=== PATIENT | female | born 1995 | race Caucasian/White ===

== ENCOUNTER → 2017-04-28 | Outpatient (CLI) | payer BC | LOC: COL.LAB 16:17 | DX: Z01.89 Encounter for other specified special examinations (principal) ==

== ENCOUNTER → 2017-05-01 | Outpatient (CLI) | payer BC | LOC: COL.LAB 15:10 | DX: K51.00 Ulcerative (chronic) pancolitis without complications (principal) ==

== ENCOUNTER 2017-09-14 13:40 | Outpatient (CLI) | payer BC ==
[~2017-09-14] VITALS: Ht 180.3 cm; Wt 59.0 kg
[~2017-09-14 13:40] MED LIST: LIALDA 1.2 GM1.2 GM PO
[2017-09-14] MEDS ORDERED: MILLIPRED5 MG PO (14:06)
[2017-09-14 14:08] LABS: HEMATOCRIT 41.2 % (35.0-45.0); HEMOGLOBIN 13.6 g/dl (12.0-15.0); MEAN CELL VOLUME 89 fl (80.0-95.0); MEAN CORPUSCULAR HEMOGLOBIN 30 pg (26.0-32.0); MEAN CORPUSCULAR HGB CONC 33 g/dl (33.0-37.0); MEAN PLATELET VOLUME 10.7 fl (7.4-10.4); PLATELET COUNT 229 K/mm3 (130-400); RED BLOOD COUNT 4.61 M/mm3 (4.10-5.30); REDCELL DISTRIBUTION WIDTH-CV 13.1 % (11.5-14.5)
[2017-09-14 14:19] LABS: BILIRUBIN,TOTAL 0.3 mg/dL (0.0-1.0); CALCIUM 9.5 mg/dL (8.4-10.2); CREATININE, serum 0.67 mg/dL (0.52-1.25); POTASSIUM 3.6 mmol/L (3.4-5.0); TOTAL PROTEIN 8.1 gm/dL (6.4-8.2)
[2017-09-14 14:59] VITALS: BP 130/78; PULSE 72; TEMP 97.4
[2017-09-14 15:30] VITALS: BP 115/78; PULSE 77; TEMP 98.1
[2017-09-14 16:10] VITALS: BP 112/74; PULSE 63
[2017-09-14 17:01] VITALS: BP 107/75; PULSE 73; TEMP 98
== END 2017-09-14 17:01 | disposition home or self-care (01) ==
LOC: EUO 13:40
PROVIDERS: Internal Medicine Gastroenterology
DX: K50.90 Crohn's disease, unspecified, without complications (principal); Z79.899 Other long term (current) drug therapy
CPT/HCPCS: J1200; J7050; Q5102-ZB

== ENCOUNTER → 2017-10-30 | Outpatient (CLI) | payer BC ==
[~2017-10-30] MED LIST changes: +MILLIPRED5 MG PO
== END ==
LOC: COL.LAB 10:33
DX: K51.00 Ulcerative (chronic) pancolitis without complications (principal)

== ENCOUNTER 2017-11-09 12:33 | Outpatient (CLI) | payer BC ==
[~2017-11-09] VITALS: Ht 180.3 cm; Wt 59.0 kg
[2017-11-09 12:57] LABS: HEMATOCRIT 36.8 % (35.0-45.0); HEMOGLOBIN 12.8 g/dl (12.0-15.0); MEAN CELL VOLUME 86 fl (80.0-95.0); MEAN CORPUSCULAR HEMOGLOBIN 30 pg (26.0-32.0); MEAN CORPUSCULAR HGB CONC 35 g/dl (33.0-37.0); MEAN PLATELET VOLUME 10.9 fl (7.4-10.4); PLATELET COUNT 238 K/mm3 (130-400); RED BLOOD COUNT 4.27 M/mm3 (4.10-5.30); REDCELL DISTRIBUTION WIDTH-CV 12.2 % (11.5-14.5)
[2017-11-09 13:09] LABS: ALBUMIN 4.2 gm/dL (3.5-5.0); BILIRUBIN,TOTAL 0.6 mg/dL (0.0-1.0); CREATININE, serum 0.73 mg/dL (0.52-1.25); TOTAL PROTEIN 7.7 gm/dL (6.4-8.2)
[2017-11-09 13:53] VITALS: BP 112/83; PULSE 77; TEMP 98.4
[2017-11-09 15:00] VITALS: BP 105/65; PULSE 68; TEMP 99.1
[2017-11-09 15:30] VITALS: BP 104/70; PULSE 70; TEMP 98.9
[2017-11-09 16:00] VITALS: BP 110/66; PULSE 73; TEMP 98.7
[2017-11-09 16:38] VITALS: BP 108/70; PULSE 70; TEMP 98.7
== END 2017-11-09 16:39 | disposition home or self-care (01) ==
LOC: EUO 12:33
PROVIDERS: Internal Medicine Gastroenterology
DX: K50.90 Crohn's disease, unspecified, without complications (principal); Z98.890 Other specified postprocedural states
CPT/HCPCS: J1200; J2930; J7050; Q5103

== ENCOUNTER 2017-12-28 12:27 | Outpatient (CLI) | payer BC ==
[~2017-12-28] VITALS: Ht 180.3 cm; Wt 57.0 kg
[2017-12-28 13:01] LABS: HEMATOCRIT 39.4 % (37.0-47.0); HEMOGLOBIN 13.5 g/dl (12.5-16.0); MEAN CELL VOLUME 88 fl (80.0-100.0); MEAN CORPUSCULAR HEMOGLOBIN 30 pg (27.0-31.0); MEAN CORPUSCULAR HGB CONC 34 g/dl (33.0-37.0); MEAN PLATELET VOLUME 11.1 fl (7.4-10.4); PLATELET COUNT 178 K/mm3 (130-400); RED BLOOD COUNT 4.49 M/mm3 (4.10-5.30); REDCELL DISTRIBUTION WIDTH-CV 12.3 % (11.5-14.5)
[2017-12-28 13:13] LABS: ALBUMIN 4.5 gm/dL (3.5-5.0); BILIRUBIN,TOTAL 0.6 mg/dL (0.0-1.0); CALCIUM 9.4 mg/dL (8.4-10.2); CREATININE, serum 0.67 mg/dL (0.52-1.25); TOTAL PROTEIN 8.5 gm/dL (6.4-8.2)
[2017-12-28] MEDS ORDERED: LEXAPRO 10MG10 MG PO (13:19)
[2017-12-28 13:40] VITALS: BP 111/80; PULSE 69; TEMP 98.1
[2017-12-28 14:10] VITALS: BP 111/66; PULSE 66; TEMP 98
[2017-12-28 14:40] VITALS: BP 113/82; PULSE 63; TEMP 98.4
[2017-12-28 15:10] VITALS: BP 112/72; PULSE 65; TEMP 98.7
[2017-12-28 15:40] VITALS: BP 109/77; PULSE 66; TEMP 98.7
== END 2017-12-28 16:01 | disposition home or self-care (01) ==
LOC: EUO 12:27
PROVIDERS: Internal Medicine Gastroenterology
DX: K50.90 Crohn's disease, unspecified, without complications (principal)
CPT/HCPCS: J1200; J2930; J7050; Q5103

== ENCOUNTER 2018-02-22 12:45 | Outpatient (CLI) | payer BC ==
[~2018-02-22] VITALS: Ht 180.3 cm; Wt 58.0 kg
[~2018-02-22 12:45] MED LIST changes: +LEXAPRO 10MG10 MG PO
[2018-02-22 13:11] LABS: HEMATOCRIT 39.6 % (37.0-47.0); HEMOGLOBIN 13.5 g/dl (12.5-16.0); MEAN CELL VOLUME 88 fl (80.0-100.0); MEAN CORPUSCULAR HEMOGLOBIN 30 pg (27.0-31.0); MEAN CORPUSCULAR HGB CONC 34 g/dl (33.0-37.0); MEAN PLATELET VOLUME 10.6 fl (7.4-10.4); PLATELET COUNT 203 K/mm3 (130-400); REDCELL DISTRIBUTION WIDTH-CV 13.8 % (11.5-14.5)
[2018-02-22 13:20] LABS: ALBUMIN 4.2 gm/dL (3.5-5.0); BILIRUBIN,TOTAL 0.5 mg/dL (0.0-1.0); CALCIUM 8.2 mg/dL (8.4-10.2); CREATININE, serum 0.64 mg/dL (0.52-1.25); TOTAL PROTEIN 7.4 gm/dL (6.4-8.2)
[2018-02-22 14:33] VITALS: BP 120/78; PULSE 57
[2018-02-22 15:19] VITALS: BP 123/66; PULSE 57; TEMP 98.4
[2018-02-22 15:50] VITALS: BP 112/68; PULSE 57
[2018-02-22 16:20] VITALS: BP 113/70; PULSE 53
[2018-02-22 16:50] VITALS: BP 95/80; PULSE 55
[2018-02-22 17:15] VITALS: BP 116/79; PULSE 56
== END 2018-02-22 17:57 | disposition home or self-care (01) ==
LOC: EUO 12:45
PROVIDERS: Internal Medicine Gastroenterology
DX: K50.90 Crohn's disease, unspecified, without complications (principal); Z79.899 Other long term (current) drug therapy
CPT/HCPCS: J1200; J2920; J7050; Q5103

== ENCOUNTER → 2018-03-29 | Outpatient (CLI) | payer BC | LOC: COL.LAB 14:57 | DX: K51.00 Ulcerative (chronic) pancolitis without complications (principal) ==

== ENCOUNTER 2018-04-19 14:37 | Outpatient (CLI) | payer BC ==
[~2018-04-19] VITALS: Ht 180.3 cm; Wt 61.5 kg
[2018-04-19 15:00] LABS: HEMATOCRIT 39.4 % (37.0-47.0); HEMOGLOBIN 13.7 g/dl (12.5-16.0); MEAN CELL VOLUME 88 fl (80.0-100.0); MEAN CORPUSCULAR HEMOGLOBIN 31 pg (27.0-31.0); MEAN CORPUSCULAR HGB CONC 35 g/dl (33.0-37.0); MEAN PLATELET VOLUME 10.6 fl (7.4-10.4); PLATELET COUNT 235 K/mm3 (130-400); RED BLOOD COUNT 4.49 M/mm3 (4.10-5.30); REDCELL DISTRIBUTION WIDTH-CV 12.3 % (11.5-14.5)
[2018-04-19 15:08] LABS: ALBUMIN 4.3 gm/dL (3.5-5.0); BILIRUBIN,TOTAL 0.4 mg/dL (0.0-1.0); CALCIUM 8.9 mg/dL (8.4-10.2); CREATININE, serum 0.67 mg/dL (0.52-1.25); POTASSIUM 4.2 mmol/L (3.4-5.0); TOTAL PROTEIN 7.7 gm/dL (6.4-8.2)
[2018-04-19 15:45] VITALS: BP 117/82; PULSE 69; TEMP 98.2
[2018-04-19 16:15] VITALS: BP 105/67; PULSE 69; TEMP 98.3
[2018-04-19 16:45] VITALS: BP 103/67; PULSE 73; TEMP 98.4
[2018-04-19 17:15] VITALS: BP 112/57; PULSE 68; TEMP 98.4
[2018-04-19 17:45] VITALS: BP 106/70; PULSE 70; TEMP 98.4
== END 2018-04-19 18:00 | disposition home or self-care (01) ==
LOC: EUO 14:37
PROVIDERS: Internal Medicine Gastroenterology
DX: K50.90 Crohn's disease, unspecified, without complications (principal)
CPT/HCPCS: J1200; J2930; J7050; Q5103

== ENCOUNTER 2018-05-04 10:20 | Day surgery (SDC) | payer BC ==
[~2018-05-04] VITALS: Ht 180.3 cm; Wt 59.2 kg
[2018-05-04] MEDS ORDERED: REMIFENTANIL 1 MG IV (10:37)
[2018-05-04 11:18] VITALS: BP 111/82; PULSE 95; TEMP 98
[2018-05-04 14:10] VITALS: BP 110/78; PULSE 68; TEMP 97.7
[2018-05-04 14:15] VITALS: BP 106/78; PULSE 68
== END 2018-05-04 14:52 | disposition home or self-care (01) ==
LOC: SDCO 10:20
DX: K51.011 Ulcerative (chronic) pancolitis with rectal bleeding (principal); K92.1 Melena; D50.0 Iron deficiency anemia secondary to blood loss (chronic); F32.9 Major depressive disorder, single episode, unspecified
CPT/HCPCS: J2704

== ENCOUNTER 2018-06-14 13:27 | Outpatient (CLI) | payer BC ==
[~2018-06-14] VITALS: Ht 180.3 cm; Wt 58.8 kg
[~2018-06-14 13:27] MED LIST changes: +REMIFENTANIL 1 MG IV
[2018-06-14 13:49] LABS: HEMOGLOBIN 14.1 g/dl (12.5-16.0); MEAN CELL VOLUME 89 fl (80.0-100.0); MEAN CORPUSCULAR HEMOGLOBIN 31 pg (27.0-31.0); MEAN CORPUSCULAR HGB CONC 34 g/dl (33.0-37.0); MEAN PLATELET VOLUME 11.3 fl (7.4-10.4); PLATELET COUNT 206 K/mm3 (130-400); REDCELL DISTRIBUTION WIDTH-CV 11.9 % (11.5-14.5)
[2018-06-14 13:59] LABS: ALBUMIN 4.6 gm/dL (3.5-5.0); BILIRUBIN,TOTAL 0.6 mg/dL (0.0-1.0); CALCIUM 9.6 mg/dL (8.4-10.2); CREATININE, serum 0.6 mg/dL (0.52-1.25); POTASSIUM 4.1 mmol/L (3.4-5.0); TOTAL PROTEIN 7.9 gm/dL (6.4-8.2)
[2018-06-14 14:50] VITALS: BP 112/71; PULSE 66; TEMP 97.6
[2018-06-14] MEDS ORDERED: PRILOSEC 20MG20 MG PO (14:57)
[2018-06-14 15:30] VITALS: BP 105/64; PULSE 61; TEMP 98.3
[2018-06-14 16:05] VITALS: BP 105/64; PULSE 52; TEMP 98.5
[2018-06-14 16:30] VITALS: BP 106/74; PULSE 59; TEMP 98.3
[2018-06-14 17:00] VITALS: BP 104/72; PULSE 59; TEMP 98.6
== END 2018-06-14 17:38 | disposition home or self-care (01) ==
LOC: EUO 13:27
PROVIDERS: Internal Medicine Gastroenterology
DX: K50.90 Crohn's disease, unspecified, without complications (principal); Z79.899 Other long term (current) drug therapy
CPT/HCPCS: J1200; J2930; J7050; Q5103

== ENCOUNTER 2018-08-09 13:37 | Outpatient (CLI) | payer BC ==
[~2018-08-09] VITALS: Ht 180 cm; Wt 58.4 kg
[~2018-08-09 13:37] MED LIST changes: +PRILOSEC 20MG20 MG PO
[2018-08-09 14:07] LABS: HEMATOCRIT 38.5 % (37.0-47.0); MEAN CELL VOLUME 89 fl (80.0-100.0); MEAN CORPUSCULAR HEMOGLOBIN 30 pg (27.0-31.0); MEAN CORPUSCULAR HGB CONC 34 g/dl (33.0-37.0); MEAN PLATELET VOLUME 11.2 fl (7.4-10.4); PLATELET COUNT 182 K/mm3 (130-400); RED BLOOD COUNT 4.32 M/mm3 (4.10-5.30); REDCELL DISTRIBUTION WIDTH-CV 12.7 % (11.5-14.5)
[2018-08-09 14:28] LABS: ALBUMIN 4.3 gm/dL (3.5-5.0); BILIRUBIN,TOTAL 0.5 mg/dL (0.0-1.0); CALCIUM 9.2 mg/dL (8.4-10.2); CREATININE, serum 0.69 mg/dL (0.52-1.25); POTASSIUM 3.8 mmol/L (3.4-5.0); TOTAL PROTEIN 7.4 gm/dL (6.4-8.2)
[2018-08-09 15:10] VITALS: BP 110/72; PULSE 84; TEMP 98
[2018-08-09 15:36] VITALS: BP 96/70; PULSE 70; TEMP 98.5
[2018-08-09 16:10] VITALS: BP 102/74; PULSE 68; TEMP 98.4
[2018-08-09 17:10] VITALS: BP 114/76; PULSE 71; TEMP 97.9
== END 2018-08-09 17:10 | disposition home or self-care (01) ==
LOC: EUO 13:37
PROVIDERS: Internal Medicine Gastroenterology
DX: K50.90 Crohn's disease, unspecified, without complications (principal); Z79.899 Other long term (current) drug therapy
CPT/HCPCS: J1200; J2930; J7050; Q5103

== ENCOUNTER → 2019-03-20 | Outpatient (CLI) | payer BC ==
[2019-03-20 11:33] LABS: BASO % 0.4 % (0.0-2.0); EOS % 0.4 % (0-4.0); GRAN # 4.2 (1.4-6.5); GRAN % 59.2 % (42.2-75.2); HEMOGLOBIN 13.6 g/dl (12.5-16.0); LYMPH # 2.2 (1.2-3.4); LYMPH % 31.4 % (20.0-51.0); MEAN CELL VOLUME 88 fl (80.0-100.0); MEAN CORPUSCULAR HEMOGLOBIN 31 pg (27.0-31.0); MEAN CORPUSCULAR HGB CONC 35 g/dl (33.0-37.0); MEAN PLATELET VOLUME 10.5 fl (7.4-10.4); MONO # 0.6 (0.1-0.6); MONO % 8.3 % (1.7-9.3); PLATELET COUNT 259 K/mm3 (130-400); RED BLOOD COUNT 4.44 M/mm3 (4.10-5.30); REDCELL DISTRIBUTION WIDTH-CV 11.8 % (11.5-14.5)
[2019-03-20 11:44] LABS: ALANINE AMINOTRANSFERASE 11 U/L (9-52); ALBUMIN 4.6 gm/dL (3.5-5.0); ALKALINE PHOSPHATASE 48 U/L (50-136); ANION GAP 9 mmol/L (7-16); AST,SGOT 15 U/L (15-37); BILIRUBIN,TOTAL 0.4 mg/dL (0.0-1.0); BLOOD UREA NITROGEN 16 mg/dL (7-17); C-REACTIVE PROTEIN < 0.5 mg/dL (0.0-0.9); CALCIUM 9.4 mg/dL (8.4-10.2); CARBON DIOXIDE 29 mmol/L (22-30); CHLORIDE 101 mmol/L (98-107); CREATININE, serum 0.82 (0.52-1.25); GLUCOSE 92 mg/dL (74-106); IRON,SERUM 73 ug/dL (35-150); POTASSIUM 4.1 mmol/L (3.4-5.0); SODIUM 139 mmol/L (137-145); TOTAL PROTEIN 7.5 gm/dL (6.4-8.2)
[2019-03-20 11:50] LABS: TOTAL IRON BINDING CAPACITY 346 ug/dL (265-497)
[2019-03-20 11:54] LABS: ERYTHROCYTE SEDIMENTATION RATE 6 mm/hr (0-20)
[2019-03-20 12:16] LABS: FERRITIN 15 ng/mL (6-137)
== END ==
LOC: COL.LAB 03-19 15:14
DX: K92.1 Melena (principal); K51.00 Ulcerative (chronic) pancolitis without complications

== ENCOUNTER 2019-03-22 13:38 | Day surgery (SDC) | payer BC ==
[~2019-03-22] VITALS: Ht 180.3 cm; Wt 63.4 kg
[~2019-03-22 13:38] MED LIST changes: -LEXAPRO 10MG10 MG PO; +LEXAPRO20 MG PO
[2019-03-22] MEDS ORDERED: XELJANZ10 MG PO (13:59)
[2019-03-22 14:00] VITALS: BP 114/82; PULSE 91; TEMP 97
[2019-03-22 15:25] VITALS: BP 111/72; PULSE 70; TEMP 97.4
--- NOTE | 2019-03-22 15:25 | NUR ---
Patient returned back to [facility]. Alert but drowsy. Ambulated to chair without difficulty. Placed on monitors, vital sounds stable. Boyfriend and mother at bedside. Requesting sprite and crackers. Call sanchez within reach, will continue to monitor.
[2019-03-22 15:40] VITALS: BP 116/80; PULSE 66
--- NOTE | 2019-03-22 15:40 | NUR ---
Patient tolerating food and drink without difficulty. Vital signs stable. Dr. Guerra in room to discuss results with patient and family. Will continue to monitor.
[2019-03-22 15:55] VITALS: BP 111/78; PULSE 62
--- NOTE | 2019-03-22 15:55 | NUR ---
Patient states she is feeling good at this time. Vital signs stable. Will continue to monitor.
--- NOTE | 2019-03-22 16:36 | NUR ---
Discharge instructions reviewed with mother and patient. Verbalized understanding. Patient ambulated to lobby, to be driven home by mother.
== END 2019-03-22 16:36 | disposition home or self-care (01) ==
LOC: SDCO 13:38
DX: K51.011 Ulcerative (chronic) pancolitis with rectal bleeding (principal); K92.1 Melena; D50.0 Iron deficiency anemia secondary to blood loss (chronic); K59.00 Constipation, unspecified
CPT/HCPCS: J2250; J2405; J3010; J7030

== ENCOUNTER 2019-03-24 12:33 | Inpatient (IN) | payer BC ==
[~2019-03-24] VITALS: Ht 180.3 cm; Wt 64.1 kg
[~2019-03-24 12:33] MED LIST changes: +XELJANZ10 MG PO
[2019-03-24 12:49] VITALS: BP 125/80; PULSE 82; TEMP 98.5
[2019-03-24] MEDS ORDERED: PREDNISONE 5MG5 MG PO (13:30)
[2019-03-24 13:35] LABS: BASO % 0.1 % (0.0-2.0); EOS % 0.1 % (0-4.0); GRAN # 6.3 (1.4-6.5); GRAN % 84.9 % (42.2-75.2); HEMATOCRIT 39.9 % (37.0-47.0); HEMOGLOBIN 13.7 g/dl (12.5-16.0); LYMPH # 0.8 (1.2-3.4); LYMPH % 10.2 % (20.0-51.0); MEAN CELL VOLUME 88 fl (80.0-100.0); MEAN CORPUSCULAR HEMOGLOBIN 30 pg (27.0-31.0); MEAN CORPUSCULAR HGB CONC 34 g/dl (33.0-37.0); MEAN PLATELET VOLUME 10.4 fl (7.4-10.4); MONO # 0.3 (0.1-0.6); MONO % 4.4 % (1.7-9.3); PLATELET COUNT 258 K/mm3 (130-400); RED BLOOD COUNT 4.56 M/mm3 (4.10-5.30); REDCELL DISTRIBUTION WIDTH-CV 12.1 % (11.5-14.5)
[2019-03-24 14:03] LABS: ALANINE AMINOTRANSFERASE < 6 U/L (9-52); ALBUMIN 4.8 gm/dL (3.5-5.0); ALKALINE PHOSPHATASE 66 U/L (50-136); ANION GAP 8 mmol/L (7-16); AST,SGOT 29 U/L (15-37); BILIRUBIN,TOTAL 0.4 mg/dL (0.0-1.0); BLOOD UREA NITROGEN 11 mg/dL (7-17); CALCIUM 9.5 mg/dL (8.4-10.2); CARBON DIOXIDE 27 mmol/L (22-30); CHLORIDE 103 mmol/L (98-107); CREATININE, serum 0.69 (0.52-1.25); GLUCOSE 96 mg/dL (74-106); LIPASE 31 U/L (23-300); POTASSIUM 4.1 mmol/L (3.4-5.0); SODIUM 138 mmol/L (137-145); TOTAL PROTEIN 7.9 gm/dL (6.4-8.2)
[2019-03-24 14:05] LABS: C-REACTIVE PROTEIN < 0.5 mg/dL (0.0-0.9)
[2019-03-24 15:05] LABS: COLLECTION METHOD CLEAN CATCH
[2019-03-24 15:15] LABS: PH 9 (5-8); SQUAMOUS EPITHELIAL 0-2 /hpf; URINE APPEARANCE Clear; URINE BACTERIA None Seen /hpf; URINE BILIRUBIN Negative (NEGATIVE); URINE BLOOD Negative (NEGATIVE); URINE COLOR Straw; URINE GLUCOSE Negative (NEGATIVE); URINE KETONE Negative (NEGATIVE); URINE LEUKOCYTE ESTERASE Negative (NEGATIVE); URINE NITRATE Negative (NEGATIVE); URINE PROTEIN(semi-quant) Negative (NEGATIVE); URINE RBC 0-2 /hpf; URINE UROBILINOGEN Negative (NEGATIVE)
[2019-03-24 16:05] VITALS: BP 113/68; PULSE 63; TEMP 98.4
--- NOTE | 2019-03-24 18:00 | NUR ---
Patient has been doing well since admission. All admission assessments completed. Patient's pain is ok at this time. Morphine given once for pain. Explained how often she can have it. She stated her pain is generally ok until she has a bowel movement. Patients family has been at bedside. She is tolerating clear liquids well. No complaints of nausea. No other changes at this time. Call light within reach.
[2019-03-24 19:52] VITALS: BP 115/74; PULSE 64; TEMP 98.9
[2019-03-25] VITALS (7 sets, daily range): BP systolic 107–118; BP diastolic 56–76; PULSE 55–84; TEMP 97.6–98.4
--- NOTE | 2019-03-25 05:09 | NUR ---
RESTING QUIETLY NOW. NO REPORTS OF BLOODY STOOLS. MORPHINE FOR ABDOMINAL DISCOMFORT.
[2019-03-25 06:39] LABS: BASO % 0.1 % (0.0-2.0); EOS % 0.1 % (0-4.0); GRAN # 4.7 (1.4-6.5); GRAN % 64.4 % (42.2-75.2); HEMOGLOBIN 11.9 g/dl (12.5-16.0); LYMPH # 1.7 (1.2-3.4); LYMPH % 23.2 % (20.0-51.0); MEAN CELL VOLUME 89 fl (80.0-100.0); MEAN CORPUSCULAR HEMOGLOBIN 30 pg (27.0-31.0); MEAN CORPUSCULAR HGB CONC 34 g/dl (33.0-37.0); MONO # 0.9 (0.1-0.6); MONO % 12.1 % (1.7-9.3); PLATELET COUNT 222 K/mm3 (130-400); RED BLOOD COUNT 3.92 M/mm3 (4.10-5.30); REDCELL DISTRIBUTION WIDTH-CV 12.4 % (11.5-14.5)
[2019-03-25 06:41] LABS: HEMATOCRIT 34.9 % (37.0-47.0)
[2019-03-25 06:48] LABS: CREATININE, serum 0.64 (0.52-1.25); POTASSIUM 3.7 mmol/L (3.4-5.0)
--- NOTE | 2019-03-25 09:30 | NUR ---
Patient alert and oriented, answers questions appropriately. See assessment. Abdomen soft, non tender, non distended. Bowel sounds hyperactive x4 quads. +Flatus. No bowel movement since last night. C/o mild pain to abdomen. No other c/o at this time.
--- NOTE | 2019-03-25 21:27 | NUR ---
Pt. sitting up in bed with family at bedside. Pt. is A&OX3, assessment complete. IV to rt. hand patent, IV fluids infusing per orders. Pt. reports pain at a 5 on pain scale, gave paim meds per orders. Pt. denies further needs, call light within reach.
[2019-03-26 04:00] VITALS: BP 114/68; PULSE 56; TEMP 98.3
--- NOTE | 2019-03-26 05:22 | NUR ---
Pt. slept well through the night. Pt. remains A&OX3. Pt. not disturbed at this time. Respirations equal and unlabored.
[2019-03-26 06:45] LABS: BASO % 0.2 % (0.0-2.0); GRAN % 76.3 % (42.2-75.2); HEMOGLOBIN 11.7 g/dl (12.5-16.0); LYMPH # 0.9 (1.2-3.4); LYMPH % 14.2 % (20.0-51.0); MEAN CELL VOLUME 89 fl (80.0-100.0); MEAN CORPUSCULAR HEMOGLOBIN 30 pg (27.0-31.0); MEAN CORPUSCULAR HGB CONC 34 g/dl (33.0-37.0); MEAN PLATELET VOLUME 10.8 fl (7.4-10.4); MONO # 0.6 (0.1-0.6); MONO % 8.8 % (1.7-9.3); PLATELET COUNT 226 K/mm3 (130-400); RED BLOOD COUNT 3.88 M/mm3 (4.10-5.30); REDCELL DISTRIBUTION WIDTH-CV 12.4 % (11.5-14.5)
[2019-03-26 06:48] LABS: HEMATOCRIT 34.5 % (37.0-47.0)
[2019-03-26 07:00] LABS: CALCIUM 8.2 mg/dL (8.4-10.2); CREATININE, serum 0.49 (0.52-1.25); POTASSIUM 3.8 mmol/L (3.4-5.0)
[2019-03-26 07:35] VITALS: BP 112/66; PULSE 55; TEMP 98.5
--- NOTE | 2019-03-26 09:19 | NUR ---
DUSTY met with patient and mother to discuss discharge planning. Patient is a [employer] student and lives at home. Patient's PCP is Dr Ramon in [place] and she obtains prescriptions from [facility]. Patient is independent with all ADLs. DUSTY contacted [facility] [employer] to inform them of patient's hospitalization. DUSTY does not anticipate any discharge needs.
[2019-03-26 12:15] VITALS: BP 104/77; PULSE 80; TEMP 98.3
[2019-03-26 16:12] VITALS: BP 114/70; PULSE 59; TEMP 98.2
--- NOTE | 2019-03-26 16:14 | NUR ---
Patient requesting medication for pain. Explains that she was jsut up to the restroom, had third bloody stool for today, and now is having abd pain, 6/10, when lying still it is a 3/10. Explained that we can give her acetaminophen 650mg. Patient agrees. Medication administered at this time. Patient and mother have concerns regarding how much longer she will be in hospital and when she can go home. JESUS Reeder, contacts provider to discuss concerns.
[2019-03-26] MEDS ORDERED: VITAMIN D 1001000 IU PO (16:22)
[2019-03-26] MEDS ORDERED: NORCO 325 MG-51 TAB PO (16:23)
--- NOTE | 2019-03-26 17:06 | NUR ---
1700 Patient assisted out via wheelchair. All belongings returned to patient. Mother will be driving patient home. All discharge instructions reviewed and signed. Patient verbalizes understanding and denies further questions or concerns.
== END 2019-03-26 17:00 | disposition home or self-care (01) | DRG 387 ==
LOC: SURG 12:33 → JCC 03-26 06:19 → SURG 03-26 06:25
PROVIDERS: Nurse Practitioner Family; ADMIT Student in an Organized Health Care Education/Training Program
DX: K51.011 Ulcerative (chronic) pancolitis with rectal bleeding (principal); F32.9 Major depressive disorder, single episode, unspecified; Z79.52 Long term (current) use of systemic steroids
CPT/HCPCS: 99232-AI; J1650; J2270; J2920; J7030; J7512

== ENCOUNTER → 2019-04-10 | Outpatient (CLI) | payer BC ==
[~2019-04-10] MED LIST changes: +NORCO 325 MG-51 TAB PO; +PREDNISONE 5MG5 MG PO; +VITAMIN D 1001000 IU PO; +VITAMIN D31000 I1 PO
[2019-04-10 11:47] LABS: BASO % 0.1 % (0.0-2.0); EOS # 0.1 (0.0-0.7); EOS % 0.6 % (0-4.0); GRAN # 6.4 (1.4-6.5); GRAN % 81.6 % (42.2-75.2); HEMATOCRIT 39.5 % (37.0-47.0); HEMOGLOBIN 12.8 g/dl (12.5-16.0); LYMPH # 0.9 (1.2-3.4); LYMPH % 11.4 % (20.0-51.0); MEAN CELL VOLUME 92 fl (80.0-100.0); MEAN CORPUSCULAR HEMOGLOBIN 30 pg (27.0-31.0); MEAN CORPUSCULAR HGB CONC 32 g/dl (33.0-37.0); MEAN PLATELET VOLUME 9.8 fl (7.4-10.4); MONO # 0.5 (0.1-0.6); MONO % 5.7 % (1.7-9.3); PLATELET COUNT 217 K/mm3 (130-400); RED BLOOD COUNT 4.31 M/mm3 (4.10-5.30); REDCELL DISTRIBUTION WIDTH-CV 12.7 % (11.5-14.5)
== END ==
LOC: COL.LAB 11:10
DX: K92.1 Melena (principal); R10.9 Unspecified abdominal pain; R19.7 Diarrhea, unspecified

== ENCOUNTER 2019-05-14 15:00 | Outpatient (RCR) | payer BC ==
[2019-04-02] VITALS (7 sets, daily range): BP systolic 114–123; BP diastolic 66–82; PULSE 63–80; TEMP 98.3–99
[2019-04-02 15:57] LABS: HEMATOCRIT 40.5 % (37.0-47.0); HEMOGLOBIN 13.6 g/dl (12.5-16.0); MEAN CELL VOLUME 90 fl (80.0-100.0); MEAN CORPUSCULAR HEMOGLOBIN 30 pg (27.0-31.0); MEAN CORPUSCULAR HGB CONC 34 g/dl (33.0-37.0); MEAN PLATELET VOLUME 10.5 fl (7.4-10.4); PLATELET COUNT 260 K/mm3 (130-400); RED BLOOD COUNT 4.51 M/mm3 (4.10-5.30); REDCELL DISTRIBUTION WIDTH-CV 12.6 % (11.5-14.5)
[2019-04-02 16:07] LABS: ALBUMIN 4.6 gm/dL (3.5-5.0); BILIRUBIN,TOTAL 0.4 mg/dL (0.0-1.0); CREATININE, serum 0.67 (0.52-1.25); TOTAL PROTEIN 7.6 gm/dL (6.4-8.2)
[2019-04-16 15:40] LABS: HEMATOCRIT 40.6 % (37.0-47.0); HEMOGLOBIN 13.5 g/dl (12.5-16.0); MEAN CELL VOLUME 90 fl (80.0-100.0); MEAN CORPUSCULAR HEMOGLOBIN 30 pg (27.0-31.0); MEAN CORPUSCULAR HGB CONC 33 g/dl (33.0-37.0); MEAN PLATELET VOLUME 9.8 fl (7.4-10.4); PLATELET COUNT 257 K/mm3 (130-400); REDCELL DISTRIBUTION WIDTH-CV 12.7 % (11.5-14.5)
[2019-04-16 15:54] LABS: ALBUMIN 4.2 gm/dL (3.5-5.0); BILIRUBIN,TOTAL 0.2 mg/dL (0.0-1.0); CALCIUM 9.1 mg/dL (8.4-10.2); CREATININE, serum 0.63 (0.52-1.25); POTASSIUM 3.9 mmol/L (3.4-5.0); TOTAL PROTEIN 7.3 gm/dL (6.4-8.2)
[2019-04-16 16:51] VITALS: BP 117/82; PULSE 72; TEMP 98.4
[2019-04-16 17:25] VITALS: BP 118/73; PULSE 87; TEMP 98.4
[~2019-05-14] VITALS: Ht 180.3 cm; Wt 66.6 kg
[2019-05-14 15:02] LABS: HEMATOCRIT 41.6 % (37.0-47.0); HEMOGLOBIN 13.9 g/dl (12.5-16.0); MEAN CELL VOLUME 88 fl (80.0-100.0); MEAN CORPUSCULAR HEMOGLOBIN 29 pg (27.0-31.0); MEAN CORPUSCULAR HGB CONC 33 g/dl (33.0-37.0); PLATELET COUNT 355 K/mm3 (130-400); RED BLOOD COUNT 4.72 M/mm3 (4.10-5.30); REDCELL DISTRIBUTION WIDTH-CV 12.4 % (11.5-14.5)
[2019-05-14 15:06] LABS: ALBUMIN 4.7 gm/dL (3.5-5.0); BILIRUBIN,TOTAL 0.4 mg/dL (0.0-1.0); CALCIUM 9.2 mg/dL (8.4-10.2); CREATININE, serum 0.67 (0.52-1.25); POTASSIUM 4.3 mmol/L (3.4-5.0); TOTAL PROTEIN 7.9 gm/dL (6.4-8.2)
[2019-05-14 16:10] VITALS: BP 120/65; PULSE 79; TEMP 98.3
[2019-05-14 16:54] VITALS: BP 118/68; PULSE 89; TEMP 98.3
== END 2019-05-14 16:48 | disposition home or self-care (01) ==
LOC: EUO 15:00
PROVIDERS: Internal Medicine Gastroenterology; Physician Assistant
DX: K51.90 Ulcerative colitis, unspecified, without complications (principal); Z79.899 Other long term (current) drug therapy
CPT/HCPCS: J1200; J2920; J3380; J7050

== ENCOUNTER 2020-02-23 22:02 | Inpatient (IN) | payer BC ==
[~2020-02-23] VITALS: Ht 180.3 cm; Wt 59.4 kg
[2020-02-24] VITALS (17 sets, daily range): BP systolic 98–129; BP diastolic 64–87; PULSE 79–110; TEMP 97.5–100.7
--- NOTE | 2020-02-24 | NUR ---
Pt admission procedure completed, charted, alert, oriented, roomair, independent. Heart sound clear, lung sound diminished, no open wounds over body. No V/D, tingling, numbness, SOA as per pt. Meds provided as per SEP, along with PRN pain and nausea meds on pt request, tolerated well. Helped changed, settled on bed, call light on reach. No further needs at this time.
--- NOTE | 2020-02-24 05:49 | NUR ---
Pt had an uneventful night, slept through out the night. PRN pain meds given in the morning at around 0535. No further needs at this time.
--- NOTE | 2020-02-24 07:45 | NUR ---
Patient laying in bed, A&Ox4. VSS IV CDI, fluids infusing. Reporting pain in lower abdomen, left groin 02/16. Pain medication given as requested. Ileostomy RLQ CDI. No further needs expressed from the patient. Call light within reach
--- NOTE | 2020-02-24 09:23 | NUR ---
DUSTY met with the patient and her mother, Carlos (ph#[phone]), to discuss discharge plan. The patient lives in [place] with her mother and father. She is a student at [employer]. She reports independence with ADLs and does not have any DME. The patient's sees Dr. Juanita Frederick and Dr. Yrn Ramon for primary care. She receives her medications at [facility] and she reports no difficulties obtaining her meds. The patient does not have advanced directives and she was not interested in completing a DPOA-HC at this time. The patient plans to return home with her parents upon discharge. The patient and mother asked if DUSTY could contact [employer] to notify them of the patient's hospitalization. DUSTY contacted [employer] [facility] [employer] and notified them of the patient's hospitalization. No additional needs at this time.
--- NOTE | 2020-02-24 09:54 | NUR ---
Initial visit; Ivett and her mom thanked Dentist Attendant for looking in on her and offering God's blessings.
--- NOTE | 2020-02-24 11:40 | NUR ---
pt positioned prone on ct table. Monitors applied.
--- NOTE | 2020-02-24 12:10 | NUR ---
No pus obtained from abdomen. Bloody drainage removed. No drain left in place due to return of blood. Needle removed by Dr Rosado. Bandaid to site.
--- NOTE | 2020-02-24 12:45 | NUR ---
Patient back to room 352 from procedure. Patient A&Ox3, reporting pain in lower back, left and right hip 10/10. Patient is crying uncontrollably, mom at the bedside. Dr Fay called and notified. Post op VS monitored. VSS. IV CDI, fluids infusing. Bandaid left buttuck CDI. Call light within reach
[2020-02-24] MEDS ORDERED: NORETHINDRONE AC5 MG PO (18:17)
--- NOTE | 2020-02-24 18:45 | NUR ---
Patient on ASSISTANT CORPORATION COUNSEL for pain control. Patient has had pain in lower back, lower abdomen and pelvic area not relieved with IV pain medication. Patient did not tolerate the proceure for possible drain placement. VSS. A&Ox4, mother has been at the bedside. IV CDI, fluids infusing. Patient tolerating PO intake. Nurse instructed patient to call nursing staff for assistance with ambulation. Patient verbalized an understanding. No further needs expressed from the patient. Call light within reach
--- NOTE | 2020-02-24 20:04 | NUR ---
REPORT RECEIVED FROM JESUS BOTELLO. PT RESTING IN BED, MOM AT BEDSIDE. DENIES NEEDS AT THIS TIME.
--- NOTE | 2020-02-24 20:25 | NUR ---
Assessment completed. Pt resting in bed, reports pain 3/10 in lower back and abdomen at this time. Dilaudid AUTO PARTS COUNTER PERSON pump and LR running to left forearm IV at this time. Right hand INT intact, flushes easily, Zosyn started per orders. Denies nausea or dizziness at this time. Multiple small incisions from prior surgeries noted over abdomen, all incisions clean dry intact. Ileostomy bag noted on right abdomen, draining appropriately. Pt denies any needs at this time.
[2020-02-25 04:35] VITALS: BP 114/71; PULSE 107; TEMP 98.8
--- NOTE | 2020-02-25 05:20 | NUR ---
Pt reported inadequate pain relief towards beginning of shift. Dose of WATER SUPPLY TECHNICIAN dilaudid was increased per orders. Since then pt has reported adequate relief and has gotten some sleep. Vital signs have been stable. IV Zosyn administered per orders.
[2020-02-25 07:32] LABS: MEAN CELL VOLUME 78 fl (80.0-100.0); MEAN CORPUSCULAR HGB CONC 31 g/dl (33.0-37.0); PLATELET COUNT 310 K/mm3 (130-400); RED BLOOD COUNT 3.48 M/mm3 (4.10-5.30); REDCELL DISTRIBUTION WIDTH-CV 16.6 % (11.5-14.5)
[2020-02-25 07:39] VITALS: BP 111/68; PULSE 107; TEMP 100.7
[2020-02-25 07:43] LABS: HEMATOCRIT 27.2 % (37.0-47.0); HEMOGLOBIN 8.5 g/dl (12.5-16.0); MEAN CORPUSCULAR HEMOGLOBIN 24 pg (27.0-31.0)
--- NOTE | 2020-02-25 07:45 | NUR ---
PATIENT IS RESTING IN BED QUIETLY. BRANCH OPERATIONS MANAGER AND ZOSYN ARE INFUSING. NO NEEDS IDENTIFIED
[2020-02-25 07:56] LABS: CALCIUM 8.5 mg/dL (8.4-10.2); CREATININE, serum 0.71 (0.52-1.25); POTASSIUM 3.6 mmol/L (3.4-5.0)
[2020-02-25 11:45] VITALS: BP 108/63; PULSE 94; TEMP 101.3
[2020-02-25 13:46] LABS: HEMATOCRIT 26.2 % (37.0-47.0); HEMOGLOBIN 8.3 g/dl (12.5-16.0)
[2020-02-25 16:25] VITALS: BP 107/64; PULSE 72; TEMP 98
--- NOTE | 2020-02-25 19:48 | NUR ---
1047 PATIENT VERBALZES COMPLAINTS OF PAIN THAT ARE WORSENING. DID NOTIFY DR. STALLWORTH WHO DID GIVE 1X ORDER 0.5 MG DILAUDID. SHE LATER VOICED COMPLAINT OF WORSENING PAIN, DID NOTIFY DR. STALLWORTH AGAIN AND RECEIVED ORDER FOR SCHEDULED APAP.
[2020-02-25 19:49] VITALS: BP 103/66; PULSE 90; TEMP 97.5
--- NOTE | 2020-02-25 20:30 | NUR ---
Initial shift assessment done- states abd pain 5/10 when laying still,goes up to 8/10 when walking to bathroom--on Dilaudid FUR DRESSING SUPERVISOR-0.3mg every 6 minutes on demand- no basal rate. VSS. Up to bathroom on own,,does own ostomy care
[2020-02-26 00:17] VITALS: BP 101/64; PULSE 60; TEMP 98.9
[2020-02-26 04:00] VITALS: BP 98/53; PULSE 74; TEMP 97.6
--- NOTE | 2020-02-26 06:01 | NUR ---
Overall a quiet night- Dialudid HISTOPATH TECH use for pain- used 8 mg of Dilaudid IV this shift,,pt states abd pain steady at 5/10.
[2020-02-26 07:19] LABS: MEAN CELL VOLUME 80 fl (80.0-100.0); MEAN CORPUSCULAR HGB CONC 31 g/dl (33.0-37.0); MEAN PLATELET VOLUME 10.6 fl (7.4-10.4); PLATELET COUNT 334 K/mm3 (130-400); RED BLOOD COUNT 3.34 M/mm3 (4.10-5.30); REDCELL DISTRIBUTION WIDTH-CV 16.2 % (11.5-14.5)
[2020-02-26 07:26] LABS: CALCIUM 8.6 mg/dL (8.4-10.2); CREATININE, serum 0.66 (0.52-1.25); POTASSIUM 3.4 mmol/L (3.4-5.0)
[2020-02-26 07:31] LABS: HEMATOCRIT 26.7 % (37.0-47.0); HEMOGLOBIN 8.3 g/dl (12.5-16.0); MEAN CORPUSCULAR HEMOGLOBIN 25 pg (27.0-31.0)
--- NOTE | 2020-02-26 08:15 | NUR ---
PT IN BED, PT VISIBLY IN PAIN, GRIMACING PRESENT, STAGING TECHNICIAN PUMP OUT, REPLACED DILAUDID INJ Maulik/ BREEZY RN, ASSESSMENT PERFORMED, MEDICATIONS GIVEN. BANDAID REMOVED FROM DRAINAGE SITE. ANALOG DESIGN ENGINEER EQUAL. PT INDEPENDENT IN ROOM. NO OTHER NEEDS AT THIS TIME.
[2020-02-26 08:24] VITALS: BP 106/62; PULSE 74; TEMP 97.8
[2020-02-26 10:57] LABS: BAND 27 % (0-10); EOSINOPHIL 1 % (0-4); LYMPHOCYTE 9 % (20.0-51.0); NEUTROPHILS 58 % (42.0-75.2); PLATELET ESTIMATE NORMAL (NORMAL)
[2020-02-26 10:58] LABS: MICROCYTOSIS 1+
[2020-02-26 11:59] VITALS: BP 108/66; PULSE 78; TEMP 98.6
[2020-02-26 16:54] VITALS: BP 107/65; PULSE 61; TEMP 98.5
--- NOTE | 2020-02-26 18:17 | NUR ---
PT COMPLAINING OF SIGNIFICANT ABD PAIN. PT PROVIDED OWN OSTOMY CARE. MACHINE I CUTTER MEDICATION CHANGED X2 OVER SHIFT. PT PLEASANT, AOX4, TYLENOL GIVEN PERSCRIBED. PT REPORTS IBUPROFEN PRN DOES NOT HELP WITH PAIN. PREPARING FOR [facility] TRANSFER. ATTEMPTING TO CALL REPORT TO [facility], NOT RECIEVING PERSON TO GIVE REPORT AT THIS TIME. WILL ATTEMPT LATER. NO OTHER NEEDS AT THIS TIME.
--- NOTE | 2020-02-26 19:15 | NUR ---
PT DISCONNECTED FROM CLAIMS ADJUSTER SUPERVISOR PUMP. DILAUDID WASTED WITH JESUS PULIDO. PT TRANSFERRED OUT OF HOSPITAL VIA EMS WITH BELONGINGS. ATTEMPTING TO CALL REPORT AGAIN TO [facility].
--- NOTE | 2020-02-26 19:51 | NUR ---
report called to diana kauffman.
== END 2020-02-26 19:10 | disposition short-term general hospital (02) | DRG 750 ==
LOC: SURG 22:02 → MEDICAL 23:45
PROVIDERS: ADMIT Surgery
PROC: 0W9H3ZX Drainage of Retroperitoneum, Percutaneous Approach, Diagnostic (ICD-10-PCS; principal; 2020-02-24)
DX: S37.92XA Contusion of unspecified urinary and pelvic organ, initial encounter (principal); N80.3 Endometriosis of pelvic peritoneum; N73.9 Female pelvic inflammatory disease, unspecified; D64.9 Anemia, unspecified; Z93.2 Ileostomy status
CPT/HCPCS: OP; J1170; J2250; J2270; J2405; J2543; J3010; J7120; Q9967